=== PATIENT | male | born 1935 | race Two or more races ===

== ENCOUNTER 2022-05-06 19:09 | Inpatient (IN) | payer OTHER, MEDICAID ==
[~2022-05-06] VITALS: Ht 167.6 cm; Wt 59.0 kg
[~2022-05-06 19:09] MED LIST: AMLODIPINE; ATOR40TA52; GLIP5TAB12; HYDROCORTISONE; KEFLEX; LEVO88TA2; LOSARTIN
[2022-05-06 20:51] LABS: Basophils # (auto) 0.1 10 ^3/uL (0-0.2); Basophils % (auto) 0.7 % (0.0-2.0); Eosinophils # (auto) 0.4 10 ^3/uL (0-0.8); Hematocrit 40.4 % (41.0-53.0); Hemoglobin 13.8 g/dL (13.5-17.5); Lymphocytes # (auto) 0.6 10 ^3/uL (0.4-5.4); Lymphocytes % (auto) 4.1 % (10.0-50.0); Mean Corpuscular Hemoglobin 30.8 pg (28.0-32.0); Mean Corpuscular Hgb Conc. 34.1 g/dL (32.0-36.0); Mean Corpuscular Volume 90.3 fL (80.0-100.0); Monocytes # (auto) 0.8 10 ^3/uL (0-1.3); Monocytes % (auto) 5.3 % (0.0-12.0); Neutrophils # (auto) 12.2 10 ^3/uL (1.6-8.6); Neutrophils % (auto) 86.9 % (37.0-80.0); Red Blood Cells 4.47 10^6/uL (4.5-5.90); Red Cell Distribution Width 14.3 % (11.8-14.3); White Blood Cell 14.1 10^3/uL (4.4-10.8)
[2022-05-06 21:07] LABS: Albumin 3.6 g/dL (3.4-5.0); Calcium 8.9 mg/dL (8.5-10.1); Potassium 3.2 mmol/L (3.5-5.1)
[2022-05-06 21:09] LABS: Urine Bacteria FEW /hpf (None Seen); Urine Blood 3+ /uL (Negative); Urine Budding Yeast OCCASIONAL /hpf (None Seen); Urine Hyaline Cast FEW /lpf (0 - 2); Urine Specific Gravity 1.006 (1.001-1.035); Urine WBC 33 /hpf (0 - 3)
[2022-05-06 21:11] LABS: Bilirubin, Total 0.8 mg/dL (0.2-1.0); Total Protein 6.8 g/dL (6.4-8.2)
[2022-05-06] MEDS ORDERED: ASPirin 325 MG TAB PO ONE (21:45)
[2022-05-06] MEDS ORDERED: cefTRIAXone 1GM/50ML D5W 50 ML IV ONE (21:45)
[2022-05-06] MEDS ORDERED: ONDANSETRON HCL 4 MG/2 ML VIAL IV PRN (22:30)
[2022-05-06] MEDS ORDERED: DEXTROSE (50%) 50ML SYRG IV PRN (22:30)
[2022-05-06] MEDS ORDERED: FUROSEMIDE 20 MG/2 ML VIAL IV ONE (22:30)
[2022-05-06] MEDS ORDERED: ACETAMINOPHEN 325 MG TAB PO PRN (22:30)
[2022-05-06] MEDS ORDERED: HYDROcodone-ACET 5/325MG TAB PO PRN (22:30)
[2022-05-06] MEDS ORDERED: DOCUSATE SOD 100 MG CAP PO PRN (22:30)
[2022-05-06] MEDS ORDERED: NITROGLYCERIN 0.4 MG SL TAB SL PRN (23:15)
[2022-05-06] MEDS ORDERED: MORPHINE SULFATE INJ 2 MG/ml SYRG IV PRN (23:15)
[2022-05-07 04:48] LABS: Basophils # (auto) 0.1 10 ^3/uL (0-0.2); Basophils % (auto) 0.8 % (0.0-2.0); Eosinophils # (auto) 0.7 10 ^3/uL (0-0.8); Eosinophils % (auto) 9.2 % (0.0-7.0); Hematocrit 37.3 % (41.0-53.0); Lymphocytes % (auto) 11.9 % (10.0-50.0); Mean Corpuscular Hemoglobin 31.5 pg (28.0-32.0); Mean Corpuscular Hgb Conc. 34.8 g/dL (32.0-36.0); Mean Corpuscular Volume 90.7 fL (80.0-100.0); Monocytes # (auto) 0.4 10 ^3/uL (0-1.3); Monocytes % (auto) 5.3 % (0.0-12.0); Neutrophils # (auto) 5.9 10 ^3/uL (1.6-8.6); Neutrophils % (auto) 72.8 % (37.0-80.0); Nucleated Red Blood Cells % 0.1 %; Red Blood Cells 4.12 10^6/uL (4.5-5.90); Red Cell Distribution Width 14.2 % (11.8-14.3); White Blood Cell 8.1 10^3/uL (4.4-10.8)
[2022-05-07 04:57] LABS: Albumin 3.3 g/dL (3.4-5.0); Calcium 8.7 mg/dL (8.5-10.1)
[2022-05-07 04:59] LABS: BUN/Creatinine Ratio 28.3
[2022-05-07 05:01] LABS: Bilirubin, Total 0.7 mg/dL (0.2-1.0)
[2022-05-07 05:21] LABS: Potassium 2.9 mmol/L (3.5-5.1)
[2022-05-07] MEDS: SODIUM CHLOR 0.9% PF (SALINE LOCK) 10ML VIAL/SYR IV SCH ×3 (05:54→22:00)
[2022-05-07] MEDS ORDERED: SODIUM CHLORIDE 0.9% 500 ML IV ONE (06:45)
[2022-05-07] MEDS: InsuLIN REG 1unit/0.01ml Soln (100units/ml) SC SCH ×4 (07:00→22:00)
[2022-05-07] MEDS: LEVOTHYROXINE SODIUM 88 MCG TAB PO SCH (07:01)
[2022-05-07] MEDS: ACCU-CHEK COMFORT CURVE STRIP VI SCH ×4 (07:06→22:00)
[2022-05-07] MEDS: POTASSIUM CHL 20MEQ/100ML 100 ML IV SCH ×3 (07:13→13:55)
[2022-05-07 10:45] LABS: Protein, Urine 22.1 mg/dL (0.0-11.9)
[2022-05-07 10:49] LABS: Albumin 2.9 g/dL (3.4-5.0); Calcium 8.1 mg/dL (8.5-10.1); Magnesium 2.2 mg/dL (1.6-2.6); Potassium 3.3 mmol/L (3.5-5.1)
[2022-05-07 10:53] LABS: BUN/Creatinine Ratio 28.3; Bilirubin, Total 0.6 mg/dL (0.2-1.0); Total Protein 5.5 g/dL (6.4-8.2)
[2022-05-07] MEDS: ASPirin 81 mg TAB PO SCH (12:13)
[2022-05-07] MEDS: HEPARIN SODIUM (PORCINE) 5000 UNITS/ML 1ML VIAL SC SCH ×2 (12:15→23:13)
[2022-05-07] MEDS: levoFLOXacin 250MG 50 ML IV SCH (12:17)
[2022-05-07] MEDS: FUROSEMIDE 20 MG/2 ML VIAL IV SCH (12:17)
[2022-05-07] MEDS ORDERED: POTASSIUM CHL 20 Meq TABLET PO ONE (13:30)
[2022-05-07] MEDS ORDERED: ALOG1TAB2 PO (20:45)
[2022-05-07] MEDS ORDERED: LEV88T PO (20:45)
[2022-05-07] MEDS ORDERED: BUME2TAB5 PO (20:45)
[2022-05-07] MEDS ORDERED: ATOR40TA52 PO (20:45)
[2022-05-07] MEDS ORDERED: METO10TA7 PO (20:45)
[2022-05-07] MEDS ORDERED: ASPI-325 PO (20:45)
[2022-05-07] MEDS ORDERED: HYDR-4622 PO (20:45)
[2022-05-07] MEDS ORDERED: FIN5T PO (20:45)
[2022-05-07 21:51] LABS: Albumin 2.8 g/dL (3.4-5.0); BUN/Creatinine Ratio 29.8; Calcium 7.8 mg/dL (8.5-10.1); Potassium 3.4 mmol/L (3.5-5.1)
[2022-05-07 21:54] LABS: Bilirubin, Total 0.4 mg/dL (0.2-1.0); Total Protein 5.8 g/dL (6.4-8.2)
[2022-05-07 22:00] VITALS: BP 102/45
[2022-05-08 05:04] VITALS: BP 120/48
[2022-05-08 05:34] LABS: Hematocrit 38.5 % (41.0-53.0); Hemoglobin 13.3 g/dL (13.5-17.5); Mean Corpuscular Hemoglobin 31.3 pg (28.0-32.0); Mean Corpuscular Hgb Conc. 34.6 g/dL (32.0-36.0); Mean Corpuscular Volume 90.5 fL (80.0-100.0); Red Blood Cells 4.25 10^6/uL (4.5-5.90); Red Cell Distribution Width 14.4 % (11.8-14.3); White Blood Cell 7.4 10^3/uL (4.4-10.8)
[2022-05-08 05:45] LABS: BUN/Creatinine Ratio 29.2; Calcium 8.4 mg/dL (8.5-10.1); Magnesium 2.1 mg/dL (1.6-2.6); Potassium 3.4 mmol/L (3.5-5.1)
[2022-05-08 05:46] LABS: Band Neutrophils % (manual) 0; Basophils % (manual) 0 (0.0-2.0); Blast Cells 0; Metamyelocytes % 0; Myelocytes % 0; Promyelocytes % 0; Reactive Lymphocytes 0
[2022-05-08] MEDS: SODIUM CHLOR 0.9% PF (SALINE LOCK) 10ML VIAL/SYR IV SCH ×3 (06:00→22:46)
[2022-05-08] MEDS: ACCU-CHEK COMFORT CURVE STRIP VI SCH ×4 (06:31→22:42)
[2022-05-08] MEDS: InsuLIN REG 1unit/0.01ml Soln (100units/ml) SC SCH ×4 (06:31→22:42)
[2022-05-08] MEDS: LEVOTHYROXINE SODIUM 88 MCG TAB PO SCH (06:32)
[2022-05-08 06:56] LABS: Eosinophils % (manual) 15 (0-7); Lymphocytes % (manual) 12 (10.0-50.0); Monocytes % (manual) 8 (0-12)
[2022-05-08 08:00] VITALS: BP 97/38
[2022-05-08] MEDS ORDERED: POTASSIUM CHL 20 Meq TABLET PO ONE (08:15)
[2022-05-08 09:01] VITALS: BP 111/36
[2022-05-08] MEDS: HEPARIN SODIUM (PORCINE) 5000 UNITS/ML 1ML VIAL SC SCH ×2 (09:30→22:42)
[2022-05-08] MEDS: FUROSEMIDE 20 MG/2 ML VIAL IV SCH (09:30)
[2022-05-08] MEDS: ASPirin 81 mg TAB PO SCH (09:30)
[2022-05-08] MEDS: levoFLOXacin 250MG 50 ML IV SCH (09:30)
[2022-05-08 10:58] LABS: Urine Bacteria FEW /hpf (None Seen); Urine Blood 2+ /uL (Negative); Urine Mucus FEW (None Seen); Urine Specific Gravity 1.012 (1.001-1.035); Urine WBC 808 /hpf (0 - 3); Urine WBC Clumps PRESENT /hpf (None Seen)
[2022-05-08 11:13] LABS: Protein, Urine 28.1 mg/dL (0.0-11.9)
[2022-05-08] MEDS: SOD CHL 0.45% 1,000 ML IV SCH (12:10)
[2022-05-08 12:44] VITALS: BP 106/50
[2022-05-08 17:18] VITALS: BP 129/57
[2022-05-08 22:00] VITALS: BP 112/55
[2022-05-09] MEDS: SOD CHL 0.45% 1,000 ML IV SCH ×2 (03:44→13:40)
[2022-05-09 05:00] VITALS: BP 112/52
[2022-05-09] MEDS: ACCU-CHEK COMFORT CURVE STRIP VI SCH ×2 (06:10→15:38)
[2022-05-09] MEDS: SODIUM CHLOR 0.9% PF (SALINE LOCK) 10ML VIAL/SYR IV SCH ×2 (06:10→14:00)
[2022-05-09] MEDS: InsuLIN REG 1unit/0.01ml Soln (100units/ml) SC SCH ×3 (06:11→17:00)
[2022-05-09] MEDS: LEVOTHYROXINE SODIUM 88 MCG TAB PO SCH (06:11)
[2022-05-09 07:53] LABS: Hemoglobin 12.9 g/dL (13.5-17.5); Mean Corpuscular Hemoglobin 31.6 pg (28.0-32.0); Mean Corpuscular Hgb Conc. 34.9 g/dL (32.0-36.0); Mean Corpuscular Volume 90.8 fL (80.0-100.0); Red Blood Cells 4.07 10^6/uL (4.5-5.90); Red Cell Distribution Width 13.8 % (11.8-14.3); White Blood Cell 7.2 10^3/uL (4.4-10.8)
[2022-05-09 08:00] LABS: Band Neutrophils % (manual) 0; Basophils % (manual) 0 (0.0-2.0); Blast Cells 0; Metamyelocytes % 0; Myelocytes % 0; Promyelocytes % 0; Reactive Lymphocytes 0
[2022-05-09 08:29] LABS: BUN/Creatinine Ratio 27.1; Calcium 7.9 mg/dL (8.5-10.1); Magnesium 1.9 mg/dL (1.6-2.6); Phosphorus 3.2 mg/dL (2.5-4.90); Potassium 3.8 mmol/L (3.5-5.1)
[2022-05-09 09:00] VITALS: BP 119/63
[2022-05-09] MEDS ORDERED: HEPARIN SODIUM (PORCINE) 5000 UNITS/ML 1ML VIAL ONE ×8 (09:21→09:22)
[2022-05-09] MEDS: HEPARIN SODIUM (PORCINE) 5000 UNITS/ML 1ML VIAL SC SCH (10:00)
[2022-05-09] MEDS: levoFLOXacin 250MG 50 ML IV SCH (10:23)
[2022-05-09] MEDS: ASPirin 81 mg TAB PO SCH (10:24)
[2022-05-09] MEDS ORDERED: LEVO500T31 PO (11:24)
[2022-05-09 12:35] LABS: Eosinophils % (manual) 15 (0-7); Lymphocytes % (manual) 20 (10.0-50.0); Monocytes % (manual) 10 (0-12)
[2022-05-09 13:38] LABS: INR 1.09 (0.9-1.15); Partial Thromboplastin Time 30.3 sec (24.6-33.4)
[2022-05-09 17:15] VITALS: BP 127/60
== END 2022-05-09 17:45 | disposition home health service (06) | DRG 280 ==
LOC: EDBD 19:09 → ER 19:09 → TELE 23:13 → TELE-EAST 05-07 20:58 → TELE-CENTR 05-08 16:00
PROVIDERS: ADMIT Nurse Practitioner Family; ATTEND Internal Medicine
PROC: 05HC33Z Insertion of Infusion Device into Left Basilic Vein, Percutaneous Approach (ICD-10-PCS; principal; 2022-05-07)
PROC: B54NZZA Ultrasonography of Left Upper Extremity Veins, Guidance (ICD-10-PCS; 2022-05-07)
DX: I13.0 Hypertensive heart and chronic kidney disease with heart failure and stage 1 through stage 4 chronic kidney disease, or unspecified chronic kidney disease (principal); I21.A1 Myocardial infarction type 2; I50.31 Acute diastolic (congestive) heart failure; N17.0 Acute kidney failure with tubular necrosis; N39.0 Urinary tract infection, site not specified; E46 Unspecified protein-calorie malnutrition; E11.22 Type 2 diabetes mellitus with diabetic chronic kidney disease; Z68.21 Body mass index [BMI] 21.0-21.9, adult; E07.9 Disorder of thyroid, unspecified; E78.5 Hyperlipidemia, unspecified; E87.6 Hypokalemia; N40.0 Benign prostatic hyperplasia without lower urinary tract symptoms; F32.A Depression, unspecified; N18.32 Chronic kidney disease, stage 3b; N28.1 Cyst of kidney, acquired; Z88.0 Allergy status to penicillin; Z88.8 Allergy status to other drugs, medicaments and biological substances; Z91.012 Allergy to eggs; Z79.84 Long term (current) use of oral hypoglycemic drugs
CPT/HCPCS: 36415; 70450; 71045; 76775; 80048; 80053; 81001; 82570; 82962; 83036; 83605; 83735; 83880; 83935; 84100; 84133; 84156; 84300; 84443; 84484; 85007; 85025; 85027; 85610; 85730; 87040; 87086; 87088; 87186; 87426; 93005; 93306; 96361; 96365; 99291; G0378; J0696; J3480

== ENCOUNTER 2022-05-16 17:27 | Inpatient (IN) | payer OTHER, MEDICAID ==
[~2022-05-16] VITALS: Ht 152.4 cm; Wt 65.5 kg
[~2022-05-16 17:27] MED LIST changes: +ALOG1TAB2 PO; -AMLODIPINE; -ATOR40TA52; +ATOR40TA52 PO; +BUME2TAB5 PO; +FIN5T PO; -GLIP5TAB12; +HYDR-4622 PO; -HYDROCORTISONE; -KEFLEX; +LEVO500T31 PO; -LEVO88TA2; -LOSARTIN; +METO10TA7 PO
[2022-05-16 18:30] LABS: Basophils # (auto) 0 10 ^3/uL (0-0.2); Basophils % (auto) 1.1 % (0.0-2.0); Eosinophils # (auto) 0.4 10 ^3/uL (0-0.8); Eosinophils % (auto) 7.5 % (0.0-7.0); Hematocrit 38.7 % (41.0-53.0); Hemoglobin 13.8 g/dL (13.5-17.5); Lymphocytes # (auto) 0.6 10 ^3/uL (0.4-5.4); Lymphocytes % (auto) 13.5 % (10.0-50.0); Mean Corpuscular Hemoglobin 31.8 pg (28.0-32.0); Mean Corpuscular Hgb Conc. 35.7 g/dL (32.0-36.0); Mean Corpuscular Volume 89.1 fL (80.0-100.0); Monocytes # (auto) 0.3 10 ^3/uL (0-1.3); Monocytes % (auto) 7.3 % (0.0-12.0); Neutrophils # (auto) 3.3 10 ^3/uL (1.6-8.6); Neutrophils % (auto) 70.6 % (37.0-80.0); Nucleated Red Blood Cells % 0.1 %; Red Blood Cells 4.34 10^6/uL (4.5-5.90); Red Cell Distribution Width 14.5 % (11.8-14.3); White Blood Cell 4.7 10^3/uL (4.4-10.8)
[2022-05-16 18:48] LABS: Albumin 3.8 g/dL (3.4-5.0); Calcium 9.1 mg/dL (8.5-10.1); Potassium 3.5 mmol/L (3.5-5.1)
[2022-05-16 18:51] LABS: BUN/Creatinine Ratio 27.3; Bilirubin, Total 0.5 mg/dL (0.2-1.0)
[2022-05-16] MEDS ORDERED: ONDANSETRON HCL 4 MG/2 ML VIAL IV PRN (21:15)
[2022-05-16] MEDS: ATORVASTATIN 20 MG TAB PO SCH (22:53)
[2022-05-16 23:06] LABS: Urine Bacteria NONE SEEN /hpf (None Seen); Urine Blood TRACE /uL (Negative); Urine Specific Gravity 1.014 (1.001-1.035); Urine WBC 2 /hpf (0 - 3)
[2022-05-17 06:07] LABS: Basophils # (auto) 0.1 10 ^3/uL (0-0.2); Basophils % (auto) 1.1 % (0.0-2.0); Eosinophils # (auto) 0.9 10 ^3/uL (0-0.8); Eosinophils % (auto) 13.3 % (0.0-7.0); Hematocrit 35.1 % (41.0-53.0); Hemoglobin 12.4 g/dL (13.5-17.5); Lymphocytes # (auto) 0.9 10 ^3/uL (0.4-5.4); Lymphocytes % (auto) 12.4 % (10.0-50.0); Mean Corpuscular Hemoglobin 31.6 pg (28.0-32.0); Mean Corpuscular Hgb Conc. 35.4 g/dL (32.0-36.0); Mean Corpuscular Volume 89.3 fL (80.0-100.0); Monocytes # (auto) 0.5 10 ^3/uL (0-1.3); Monocytes % (auto) 7.8 % (0.0-12.0); Neutrophils # (auto) 4.5 10 ^3/uL (1.6-8.6); Neutrophils % (auto) 65.4 % (37.0-80.0); Red Blood Cells 3.93 10^6/uL (4.5-5.90); Red Cell Distribution Width 14.2 % (11.8-14.3); White Blood Cell 6.9 10^3/uL (4.4-10.8)
[2022-05-17 06:25] LABS: Calcium 8.5 mg/dL (8.5-10.1); Potassium 3.1 mmol/L (3.5-5.1)
[2022-05-17] MEDS: LEVOTHYROXINE SODIUM 88 MCG TAB PO SCH (06:49)
[2022-05-17] MEDS: BUMETANIDE 1 MG TAB PO SCH ×2 (10:00→10:21)
[2022-05-17] MEDS: ASPirin 81 mg TAB PO SCH (10:20)
[2022-05-17] MEDS: PANTOPRAZOLE 40 MG TAB PO SCH (10:20)
[2022-05-17 19:15] VITALS: BP_SYST 132; BP_SYST 135; BP_DIAS 85
[2022-05-17] MEDS: ATORVASTATIN 20 MG TAB PO SCH (21:17)
[2022-05-17 22:00] VITALS: BP 129/73
[2022-05-17] MEDS ORDERED: SODIUM CHLORIDE 0.9% 1,000 ML IV SCH (22:00)
[2022-05-17 23:55] LABS: Urine Bacteria NONE SEEN /hpf (None Seen); Urine Blood 3+ /uL (Negative); Urine Hyaline Cast FEW /lpf (0 - 2); Urine Specific Gravity 1.014 (1.001-1.035); Urine WBC 3 /hpf (0 - 3)
[2022-05-18 00:08] LABS: Creatinine, Urine 71 mg/dL (30.0-125.0); Sodium Urine 51 mmol/L (40-220)
[2022-05-18 05:00] VITALS: BP 114/72
[2022-05-18] MEDS: LEVOTHYROXINE SODIUM 88 MCG TAB PO SCH (06:25)
[2022-05-18 06:45] LABS: Basophils # (auto) 0.1 10 ^3/uL (0-0.2); Basophils % (auto) 1.1 % (0.0-2.0); Eosinophils # (auto) 0.6 10 ^3/uL (0-0.8); Eosinophils % (auto) 8.1 % (0.0-7.0); Hematocrit 36.9 % (41.0-53.0); Hemoglobin 13.3 g/dL (13.5-17.5); Lymphocytes # (auto) 0.5 10 ^3/uL (0.4-5.4); Lymphocytes % (auto) 6.9 % (10.0-50.0); Mean Corpuscular Volume 88.8 fL (80.0-100.0); Monocytes # (auto) 0.5 10 ^3/uL (0-1.3); Monocytes % (auto) 6.4 % (0.0-12.0); Neutrophils # (auto) 5.9 10 ^3/uL (1.6-8.6); Neutrophils % (auto) 77.5 % (37.0-80.0); Red Blood Cells 4.16 10^6/uL (4.5-5.90); Red Cell Distribution Width 14.3 % (11.8-14.3); White Blood Cell 7.6 10^3/uL (4.4-10.8)
[2022-05-18 06:58] LABS: BUN/Creatinine Ratio 27.4; Calcium 8.5 mg/dL (8.5-10.1); Phosphorus 3.6 mg/dL (2.5-4.90); Potassium 3.2 mmol/L (3.5-5.1); Uric Acid 12.6 mg/dL (3.5-7.2)
[2022-05-18 08:00] VITALS: BP 97/58
[2022-05-18 09:00] VITALS: BP 97/58
[2022-05-18] MEDS: PANTOPRAZOLE 40 MG TAB PO SCH (10:42)
[2022-05-18] MEDS: ASPirin 81 mg TAB PO SCH (10:42)
[2022-05-18 13:00] VITALS: BP 104/56
[2022-05-18 16:47] VITALS: BP 108/54
[2022-05-18] MEDS ORDERED: CEPH500C PO (16:54)
[2022-05-18] MEDS ORDERED: TAMS0.4C36 PO (16:54)
[2022-05-18] MEDS ORDERED: LEV88T PO (16:54)
[2022-05-18] MEDS ORDERED: ASPI-325 PO (16:54)
[2022-05-18] MEDS: ATORVASTATIN 20 MG TAB PO SCH (21:56)
[2022-05-18 22:00] VITALS: BP 114/58
[2022-05-19] VITALS (8 sets, daily range): BP systolic 73–114; BP diastolic 40–52
[2022-05-19] MEDS: ACETAMINOPHEN 325 MG TAB PO PRN ×2 (02:58→21:45)
[2022-05-19 05:35] LABS: BUN/Creatinine Ratio 25.6; Calcium 8.1 mg/dL (8.5-10.1)
[2022-05-19 05:50] LABS: Potassium 2.9 mmol/L (3.5-5.1)
[2022-05-19] MEDS ORDERED: ALBUMIN 5% 250 ML IV ONE (06:00)
[2022-05-19] MEDS ORDERED: POTASSIUM CHL 20 Meq TABLET PO ONE ×2 (06:00→13:00)
[2022-05-19] MEDS: LEVOTHYROXINE SODIUM 88 MCG TAB PO SCH (06:28)
[2022-05-19] MEDS ORDERED: ALBUMIN 25% 50 ML IV ONE (07:15)
[2022-05-19] MEDS: ASPirin 81 mg TAB PO SCH (08:56)
[2022-05-19] MEDS: PANTOPRAZOLE 40 MG TAB PO SCH (08:56)
[2022-05-19] MEDS ORDERED: SODIUM CHLORIDE 0.9% 1,000 ML IV SCH (09:45)
[2022-05-19] MEDS: POTASSIUM CHL 20 Meq TABLET PO SCH ×2 (17:45→21:42)
[2022-05-19] MEDS: SOD CHL 0.45% 1,000 ML IV SCH (21:15)
[2022-05-19] MEDS: ATORVASTATIN 20 MG TAB PO SCH (21:44)
[2022-05-20 05:00] VITALS: BP 99/38
[2022-05-20 05:27] LABS: Potassium 5.5 mmol/L (3.5-5.1)
[2022-05-20 05:31] LABS: BUN/Creatinine Ratio 28.7
[2022-05-20] MEDS: POTASSIUM CHL 20 Meq TABLET PO SCH (06:00)
[2022-05-20] MEDS: ACETAMINOPHEN 325 MG TAB PO PRN ×3 (06:20→18:44)
[2022-05-20] MEDS: LEVOTHYROXINE SODIUM 88 MCG TAB PO SCH (06:20)
[2022-05-20 09:00] VITALS: BP 93/51
[2022-05-20] MEDS: SOD CHL 0.45% 1,000 ML IV SCH (11:00)
[2022-05-20] MEDS: ASPirin 81 mg TAB PO SCH (11:00)
[2022-05-20 13:00] VITALS: BP 101/54
[2022-05-20 17:00] VITALS: BP 105/56
[2022-05-20] MEDS: ATORVASTATIN 20 MG TAB PO SCH (21:46)
[2022-05-20 22:00] VITALS: BP 113/44
[2022-05-21] MEDS: ACETAMINOPHEN 325 MG TAB PO PRN (00:30)
[2022-05-21 05:00] VITALS: BP 90/54
[2022-05-21] MEDS: LEVOTHYROXINE SODIUM 88 MCG TAB PO SCH (06:12)
[2022-05-21 06:14] LABS: Calcium 7.6 mg/dL (8.5-10.1); Potassium 4.4 mmol/L (3.5-5.1)
[2022-05-21] MEDS: SOD CHL 0.45% 1,000 ML IV SCH ×2 (07:48→13:15)
[2022-05-21 09:00] VITALS: BP 110/77
[2022-05-21] MEDS: ASPirin 81 mg TAB PO SCH (10:32)
[2022-05-21 13:00] VITALS: BP 100/52
[2022-05-21 17:00] VITALS: BP 112/74
[2022-05-21 20:00] VITALS: BP 111/54
[2022-05-21 22:00] VITALS: BP 111/54
[2022-05-21] MEDS: ATORVASTATIN 20 MG TAB PO SCH (22:32)
[2022-05-22] MEDS: SOD CHL 0.45% 1,000 ML IV SCH ×2 (02:37→18:29)
[2022-05-22 05:00] VITALS: BP 115/36
[2022-05-22] MEDS: LEVOTHYROXINE SODIUM 88 MCG TAB PO SCH (06:12)
[2022-05-22 06:16] LABS: BUN/Creatinine Ratio 20.4; Calcium 7.6 mg/dL (8.5-10.1); Potassium 4.2 mmol/L (3.5-5.1)
[2022-05-22 09:11] VITALS: BP 91/43
[2022-05-22] MEDS: ASPirin 81 mg TAB PO SCH (11:15)
[2022-05-22 13:24] VITALS: BP 103/62
[2022-05-22 17:05] VITALS: BP 100/52
[2022-05-22 20:00] VITALS: BP 108/42
[2022-05-22] MEDS: ATORVASTATIN 20 MG TAB PO SCH (21:34)
[2022-05-22 22:00] VITALS: BP 108/42
[2022-05-23] MEDS: ACETAMINOPHEN 325 MG TAB PO PRN ×2 (00:04→22:48)
[2022-05-23] MEDS ORDERED: TEMAZEPAM 15 MG CAP PO ONE (01:00)
[2022-05-23] MEDS: SOD CHL 0.45% 1,000 ML IV SCH (04:25)
[2022-05-23 05:00] VITALS: BP 107/46
[2022-05-23] MEDS: LEVOTHYROXINE SODIUM 88 MCG TAB PO SCH (07:13)
[2022-05-23 09:00] VITALS: BP 96/46
[2022-05-23 09:04] LABS: Albumin 2.5 g/dL (3.4-5.0); Calcium 7.6 mg/dL (8.5-10.1)
[2022-05-23 09:08] LABS: BUN/Creatinine Ratio 22.9; Bilirubin, Total 0.5 mg/dL (0.2-1.0); Total Protein 5.3 g/dL (6.4-8.2)
[2022-05-23] MEDS: ASPirin 81 mg TAB PO SCH (11:27)
[2022-05-23 13:00] VITALS: BP 94/50
[2022-05-23 17:00] VITALS: BP 93/40
[2022-05-23 20:00] VITALS: BP 130/51
[2022-05-23 22:00] VITALS: BP 130/51
[2022-05-23] MEDS: ATORVASTATIN 20 MG TAB PO SCH (22:37)
[2022-05-24 05:00] VITALS: BP 117/47
[2022-05-24] MEDS: LEVOTHYROXINE SODIUM 88 MCG TAB PO SCH (06:48)
[2022-05-24 06:55] LABS: BUN/Creatinine Ratio 20.4; Calcium 7.8 mg/dL (8.5-10.1); Potassium 3.9 mmol/L (3.5-5.1)
[2022-05-24 06:59] LABS: Hemoglobin 12.4 g/dL (13.5-17.5); Mean Corpuscular Hemoglobin 31.9 pg (28.0-32.0); Mean Corpuscular Hgb Conc. 35.4 g/dL (32.0-36.0); Mean Corpuscular Volume 90.1 fL (80.0-100.0); Red Blood Cells 3.88 10^6/uL (4.5-5.90); Red Cell Distribution Width 14.1 % (11.8-14.3); White Blood Cell 5.2 10^3/uL (4.4-10.8)
[2022-05-24 07:07] LABS: Band Neutrophils % (manual) 0; Basophils % (manual) 0 (0.0-2.0); Blast Cells 0; Metamyelocytes % 0; Myelocytes % 0; Promyelocytes % 0; Reactive Lymphocytes 0
[2022-05-24 09:00] VITALS: BP 131/48
[2022-05-24 10:08] LABS: Eosinophils % (manual) 22 (0-7); Lymphocytes % (manual) 9 (10.0-50.0); Monocytes % (manual) 6 (0-12)
[2022-05-24] MEDS: ASPirin 81 mg TAB PO SCH (10:16)
[2022-05-24 13:00] VITALS: BP 101/61
[2022-05-24 17:00] VITALS: BP 15/54
== END 2022-05-24 20:10 | DRG 683 ==
LOC: ER 17:27 → OVERFLOW 21:14 → WEST WING 05-17 18:45
PROVIDERS: ADMIT Nurse Practitioner; ATTEND Student in an Organized Health Care Education/Training Program
DX: N17.9 Acute kidney failure, unspecified (principal); E44.0 Moderate protein-calorie malnutrition; I13.0 Hypertensive heart and chronic kidney disease with heart failure and stage 1 through stage 4 chronic kidney disease, or unspecified chronic kidney disease; I50.32 Chronic diastolic (congestive) heart failure; Z20.822 Contact with and (suspected) exposure to COVID-19; N18.9 Chronic kidney disease, unspecified; Z68.28 Body mass index [BMI] 28.0-28.9, adult; F32.A Depression, unspecified; E03.9 Hypothyroidism, unspecified; E87.5 Hyperkalemia; I48.91 Unspecified atrial fibrillation; N40.0 Benign prostatic hyperplasia without lower urinary tract symptoms; E87.6 Hypokalemia; E11.22 Type 2 diabetes mellitus with diabetic chronic kidney disease; E78.5 Hyperlipidemia, unspecified; L98.429 Non-pressure chronic ulcer of back with unspecified severity
CPT/HCPCS: 36415; 71045; 73030; 73060; 80048; 80053; 81001; 82550; 82570; 82607; 83880; 84100; 84300; 84484; 84550; 85007; 85025; 85027; 85652; 87426; 93005; 93971; 97116; 97163; 97530; G0378